=== PATIENT | female | born 1990 | race Caucasian/White ===

== ENCOUNTER 2024-05-01 07:18 | Day surgery (SDC) | payer SELFPAY ==
[~2024-05-01] VITALS: Ht 162.6 cm; Wt 62.6 kg
[~2024-05-01 07:18] MED LIST: FLUO40CA PO
[2024-05-01] MEDS ORDERED: NS 1,000 ML IV SCH ×2 (07:35→11:30)
[2024-05-01 07:43] LABS: HEMATOCRIT 43.7 % (36.0-47.0); HEMOGLOBIN 14.7 g/dl (12.0-15.5); MEAN CORPUSCULAR HEMOGLOBIN 30.4 pg (27.0-33.0); MEAN CORPUSCULAR HGB CONC 33.6 g/dl (32.0-36.5); MEAN CORPUSCULAR VOLUME 90.3 fl (80.0-96.0); PLATELET COUNT, AUTOMATED 233 10^3/uL (150-450); RED BLOOD COUNT 4.84 10^6/uL (4.00-5.40); WHITE BLOOD COUNT 6.6 10^3/uL (4.0-10.0)
[2024-05-01 08:08] LABS: BLOOD UREA NITROGEN 12 MG/DL (9-23); CALCIUM LEVEL 9.5 MG/DL (8.5-10.1); CARBON DIOXIDE LEVEL 28 MMOL/L (20-31); CHLORIDE LEVEL 106 MMOL/L (98-107); CREATININE FOR GFR 0.77 MG/DL (0.55-1.30); GLOMERULAR FILTRATION RATE > 60.0 (>60); GLUCOSE, FASTING 92 MG/DL (60-100); POTASSIUM SERUM 4.6 MMOL/L (3.5-5.1); SODIUM LEVEL 139 MMOL/L (136-145)
[2024-05-01] MEDS ORDERED: ROCURONIUM BROMIDE 50MG/5ML VIAL As Ordered ONE (08:18)
[2024-05-01] MEDS ORDERED: LIDOCAINE 2% 100MG/5ML SDV (FOR ANES.) As Ordered ONE (08:18)
[2024-05-01] MEDS ORDERED: ONDANSETRON 4MG 2ML VIAL As Ordered ONE (08:18)
[2024-05-01] MEDS ORDERED: propofoL 200 MG/20 ML VIAL As Ordered ONE (08:18)
[2024-05-01] MEDS ORDERED: MIDAZOLAM INJ 2MG/2ML VIAL As Ordered ONE (08:18)
[2024-05-01] MEDS ORDERED: fentaNYL 250 MCG/5 ML INJECTION As Ordered ONE (08:18)
[2024-05-01] MEDS ORDERED: LACRILUBE (AKWA TEARS) OPHTH OINT 3.5GM As Ordered ONE (08:31)
[2024-05-01] MEDS ORDERED: SEVOFLURANE INHAL SOLN 250 ML BTL As Ordered ONE (08:48)
[2024-05-01] MEDS ORDERED: dexmedeTOMIDine (4MCG/ML)200MCG/50ML BTL (PRECEDEX) As Ordered ONE (08:55)
[2024-05-01] MEDS: ceFAZolin SOD 2 GM in IV 1 EA IV ONE (09:35)
[2024-05-01] MEDS: LIDOCAINE 1% MDV 20ML VIAL As Ordered ONE (09:55)
[2024-05-01] MEDS: EPINEPHrine INJ 1 MG/ML 1ML AMP As Ordered ONE (09:55)
[2024-05-01] MEDS ORDERED: ACETAMINOPHEN 1000MG 100ML IV BAG As Ordered ONE (10:03)
[2024-05-01] MEDS ORDERED: SUGAMMADEX SODIUM 500 MG/5 ML VIAL (BRIDION) As Ordered ONE (10:03)
[2024-05-01] MEDS: HEPARIN SOD (PORCINE) 5000UNITS/ML 1ML VIAL/SYRINGE SQ ONE (10:04)
[2024-05-01] MEDS ORDERED: METOCLOPRAMIDE INJ 10MG/2ML VIAL As Ordered ONE (10:40)
[2024-05-01] MEDS ORDERED: TRAM50TA2 PO (11:24)
[2024-05-01] MEDS ORDERED: HYDROMORPHONE HCL 0.5 MG/ 0.5 ML SYRINGE IV PRN (11:30)
[2024-05-01] MEDS ORDERED: ONDANSETRON 4MG 2ML VIAL IV PRN (11:30)
[2024-05-01] MEDS ORDERED: fentaNYL 100 MCG/2 ML INJECTION IV PRN (11:30)
[2024-05-01] MEDS: oxyCODONE 5MG TAB PO PRN (12:51)
[2024-05-01] MEDS ORDERED: TOBRADEX OPHTH OINT 3.5 GM As Ordered ONE (12:59)
[2024-05-01 13:00] VITALS: BP 98/62; TEMP 97.2; O2SAT 97
[2024-05-01] MEDS: TOBRADEX OPHTH OINT 3.5 GM OS ONE (13:20)
[2024-05-01] MEDS: PROPARACAINE 0.5% OPHTH SOL 15ML OS ONE (14:42)
== END 2024-05-01 13:20 | disposition home or self-care (01) ==
LOC: M SDC 07:18
PROVIDERS: ATTEND Plastic Surgery Surgery of the Hand
DX: E88.1 Lipodystrophy, not elsewhere classified (principal); Z79.899 Other long term (current) drug therapy
CPT/HCPCS: 15877; 36415; 80048; 81025; 85027; 88300; J0131; J0171; J0690; J1100; J2250; J2405; J2765; J3010